=== PATIENT | male | born 1950 | race Caucasian/White ===

== ENCOUNTER 2020-10-18 09:55 | Emergency (ER) | payer OTHER ==
[2020-10-18 10:05] VITALS: BP 181/87
--- NOTE | 2020-10-18 11:48 | ED Physician Documentation ---
History of Present Illness - Stated complaint Stated Complaint: MALE - Chief complaint Chief Complaint: Abd Pain - History obtained from History obtained from: Patient - Additonal information Additional information: 70-year-old man with past medical history of right inguinal hernia presents with right groin pain, progressively worsening over the course of the day today. Worse with cough and bearing down. No discoloration or warmth. Review of Systems Constitutional: denies: Fever GI: reports: Abdominal Pain. denies: Nausea : denies: Dysuria, Frequency PD PAST MEDICAL HISTORY - Past Medical History Cardiovascular: High cholesterol - Present Medications Home Medications: Ambulatory Orders Medication Instructions Recorded Confirmed Aspirin [Aspirin EC] 81 mg PO DAILY 10/18/20 10/18/20 - Allergies Allergies/Adverse Reactions: Allergies Allergy/AdvReac Type Severity Reaction Status Date / Time No Known Drug Allergies Allergy Verified 10/18/20 10:05 - Social History Does the pt smoke?: No Smoking Status: Never smoker Does the pt drink ETOH?: Yes ETOH Use: Wine Does the pt have substance abuse?: Yes Substance Use and Type: Marijuana PD ED PE NORMAL - Vitals Vital signs reviewed: Yes - General General: Alert and oriented X 3, No acute distress, Well developed/nourished - HEENT HEENT: Atraumatic, PERRL, EOMI - Neck Neck: Supple, no meningeal sign - Abdomen Abdomen: Non tender, Non distended - Male Male : Brush Hand present (tech Ady), Other (large Direct inguinal hernia on the right) - Derm Derm: Normal color, Warm and dry - Extremities Extremities: No deformity - Neuro Neuro: Alert and oriented X 3 - Psych Psych: Normal mood, Normal affect Results - Vitals Vitals: Vital Signs - 24 hr 10/18/20 10:01 Temperature 37.0 C Heart Rate 99 Respiratory 20 Rate Blood Pressure 181/87 H O2 Saturation 98 Oxygen O2 Source Room air PD MEDICAL DECISION MAKING - ED course ED course: 70-year-old man presented with inguinal hernia that I was unable to reduce. Dr. Webb, surgeon continuity reader reduced with success and he is ambulatory without difficulty. will f/u surg clinic to schedule outpatient surg. return precautios given. Departure - Departure Disposition: 01 Home, Self Care Clinical Impression: Inguinal hernia Condition: Good Instructions: ED Hernia Inguinal Follow-Up: Nam Webb MD [Provider Admit Priv/Credential] - Comments: You were seen in the ED for hernia. Dr. Webb reduced it and you can follow up in his clinic to have it repaired. return to the ED if you have new or worsening symptoms or other concerns. Discharge Date/Time: 10/18/20 12:05
--- NOTE | 2020-10-18 12:11 | CONSULTATION NOTE ---
Surgery Consult - Consult Date Consult Date: 10/18/20 Requesting Provider: Gal - Chief Complaint Chief Complaint: right groin bulge and pain - Home Meds/Allergies Home Medications: Patient History Medication Instructions Recorded Confirmed Aspirin [Aspirin EC] 81 mg PO DAILY 10/18/20 10/18/20 Allergies/Adverse Reactions: Allergies Allergy/AdvReac Type Severity Reaction Status Date / Time No Known Drug Allergies Allergy Verified 10/18/20 10:05 - Vital Signs Vital Signs: Last Vital Signs Temp 37.0 C 10/18/20 10:01 Pulse 99 10/18/20 10:01 Resp 20 10/18/20 10:01 BP 181/87 H 10/18/20 10:01 Pulse Ox 98 10/18/20 10:01 - Consultation Note Consultation Note: 70 yo male [place] patient who noted a right groin bulge in the past month. He went to the [facility] clinic to evaluate as he was concerned it might be a tumor. He was told by the [place] doctor that it was a hernia and he should seek care if it caused any discomfort. Last night he felt increased swelling and pain and the bulge did not go away. He rode the bus from [place] to here for ER evaluation. No vomiting, he has passed flatus. No previous inguinal hernia or abdominal surgery. PMH: On vitamins and aspirin. Uses a walker because of chronic back pain. ROS: no chest pain, no SOB, no abdominal pain other than right groin. SH: Does not have a care, takes the bus wherever he needs to go. EXAM: General: elderly male, no distress Abdomen: scaphoid, nontender, no masses Inguinal exam: large, right inguinal hernia, reduced easily with steady pressure. No recurrence of hernia with cough and ambulation. Testes and cords bilateral normal Assessment: Reducible, large right inguinal hernia Plan: Patient cautioned to avoid any heavy lifting or straining and to monitor the right groin for any recurrence of the hernia. He will return to the ER if incarceration recurs. He will make an appointment with [facility] within one week to have the hernia repair scheduled. He was asked if he wants to schedule the repair with the [place], but the patient prefers to come here for surgery.
== END 2020-10-18 12:05 | disposition home or self-care (01) ==
LOC: ED 09:55
DX: K40.90 Unilateral inguinal hernia, without obstruction or gangrene, not specified as recurrent (principal)
CPT/HCPCS: 99281; 99283

== ENCOUNTER 2020-11-10 05:38 | Emergency (ER) | payer OTHER ==
[2020-11-10] MEDS ORDERED: HYDROmorphone 1 MG/ML CARPUJECT IM STA (05:46)
--- NOTE | 2020-11-10 06:20 | ED Physician Documentation ---
History of Present Illness - Stated complaint Stated Complaint: ABD PX,SWELLING - Chief complaint Chief Complaint: Abd Pain - History obtained from History obtained from: Patient - Additonal information Additional information: 70-year-old man with history of inguinal hernia status post reduction in the emergency department 10/18 presents with inguinal swelling since that time, worse with heavy lifting, progressing to severe pain overnight and hardening of the lump. Patient has not had a BM in 3 days. denies fever, discoloration, difficulty urinating. Review of Systems GI: reports: Abdominal Pain, Abdominal Swelling : reports: Testicular mass PD PAST MEDICAL HISTORY - Past Medical History Past Medical History: Yes Cardiovascular: High cholesterol GI: Other Other Past Medical History: inguinal hernia - Past Surgical History Past Surgical History: Yes Ortho: Hip replacement - Present Medications Home Medications: Ambulatory Orders Medication Instructions Recorded Confirmed Aspirin [Aspirin EC] 81 mg PO DAILY 10/18/20 11/10/20 Atorvastatin [Lipitor] 10 mg PO DAILY 11/10/20 11/10/20 HYDROcod/ACETAM 5/325 [Riley 5/325] 1 - 2 tablet PO Q6H PRN #14 tablet 11/10/20 Multivitamin 1 tab PO DAILY 11/10/20 11/10/20 - Allergies Allergies/Adverse Reactions: Allergies Allergy/AdvReac Type Severity Reaction Status Date / Time No Known Drug Allergies Allergy Verified 11/10/20 05:43 - Social History Does the pt smoke?: No Smoking Status: Never smoker Does the pt drink ETOH?: Yes Does the pt have substance abuse?: No - Immunizations Immunizations are current?: Yes PD ED PE NORMAL - Vitals Vital signs reviewed: Yes - General General: Alert and oriented X 3, No acute distress, Well developed/nourished - HEENT HEENT: Atraumatic, PERRL, EOMI - Abdomen Abdomen: Other (RLQ of abdomen with palpable hardened hernia that is not easily reducible. ) - Male Male : Other (R testicle swelling, hardened. no discoloration) - Neuro Neuro: Alert and oriented X 3, No motor deficit, No sensory deficit Results - Vitals Vitals: Oxygen O2 Source Room air PD MEDICAL DECISION MAKING - ED course ED course: Attempted reduction of right inguinal hernia in the emergency department. Unable to do so therefore I called Dr. Atkins, surgeon diamond finishing supervisor. patient endorsed to incoming daytime ED MD for further management and care. Departure - Departure Disposition: 01 Home, Self Care Clinical Impression: Incarcerated right inguinal hernia Condition: Stable Instructions: ED Hernia Inguinal Follow-Up: Arsalan Perez MD [Provider Admit Priv/Credential] - Mj Anthony MD [Provider Admit Priv/Credential] - Prescriptions: HYDROcod/ACETAM 5/325 [Riley 5/325] 1 - 2 tablet PO Q6H PRN #14 tablet PRN Reason: Pain Comments: Your hernia has been reduced today by the surgeon diamond finishing supervisor. You were given procedural sedation, and as such, should not drive or operate heavy equipment, nor should you make any important decisions or sign any important documents for the next 24 hours. The surgeon has recommended a "truss hernia belt" to help support the hernia area and prevent it from popping out and getting stuck again. You can google "truss hernia belt" for options. You can also search on a [employer] to find this kind of belt. There are many other websites that carry it also. The surgeon has recommended that you wear this to prevent further trouble such as you had today. He is also recommended that you follow-up with general surgeon to discuss having your hernia repaired. You may take the pain medication as needed, though you should be sure to eat a high-fiber diet to help avoid lilian re constipation. Discharge Date/Time: 11/10/20 09:48
[2020-11-10] MEDS ORDERED: MORPHINE 10 MG/ML VIAL IVP STA (07:30)
[2020-11-10] MEDS ORDERED: MIDAZOLAM 2 MG/2 ML VIAL IVP STA (07:31)
[2020-11-10] MEDS ORDERED: PROPOFOL 200 MG/20 ML VIAL IVP STA (08:10)
--- NOTE | 2020-11-10 08:30 | CONSULTATION NOTE ---
Surgery Consult - Home Meds/Allergies Home Medications: Patient History Medication Instructions Recorded Confirmed Aspirin [Aspirin EC] 81 mg PO DAILY 10/18/20 11/10/20 Atorvastatin [Lipitor] 10 mg PO DAILY 11/10/20 11/10/20 Multivitamin 1 tab PO DAILY 11/10/20 11/10/20 Allergies/Adverse Reactions: Allergies Allergy/AdvReac Type Severity Reaction Status Date / Time No Known Drug Allergies Allergy Verified 11/10/20 05:43 - Vital Signs Vital Signs: Last Vital Signs Temp 36.6 C 11/10/20 05:46 Pulse 71 11/10/20 07:48 Resp 18 11/10/20 07:48 BP 171/95 H 11/10/20 07:48 Pulse Ox 97 11/10/20 07:48 - Consultation Note Consultation Note: Pt seen and examined in ER and d/w ER doc for need for consious sedation. Pt has had a known right inguinal hernia that has increased in size especially over the last 3 days. He denies any constitutional symptoms specifically no anorexia, emesis, fever or obstipation. He has been seen and evaluated for this at the [facility]. I was called by the ER after failure to reduce bedside. Pt is non bothered by this but thought he should come in for eval. ROS - as per HPI. Reviewed and otherwise non contributory PMH/PSH reviewed per chart PE: AVSS Gen: aox3, pleasant, WNWD Rssp: non labored, symmetric CV: RRR Abd: benign, large irreducible RIH involving R thierno scrotum Ext: WWP A/P 1. Incarecerated RIH 2. Consious sedation by ER and completely reduced by me. May benefit from truss prior to repair 3. No concerns for ischemia due to completely painless prior and would advance diet and discharge with follow up with General Surgery for elective repair. 4. Pt agrees and understands and all questions answered.
--- NOTE | 2020-11-10 09:12 | ED Physician Documentation ---
ED Addendum - Addendum Addendum: 11/10/20 09:08 I was asked by Dr. Atkins, the surgeon transportation planning engineer, who is consulting on this patient, to administer procedural sedation so that he could attempt a reduction of the patient's incarcerated right inguinal hernia in the emergency department. I went through the informed consent with the patient, who agreed to the sedation. The patient was given 10 mg of morphine prior to the sedation, then 5 mg of Versed IV. Respiratory therapist was present. Dr. Atkins did begin his attempt to reduce the hernia, but despite the medications above, the patient was still becoming tense and grimacing. Dr. Atkins did request deeper sedation for the patient in the form of propofol, so I did give 50 mg of propofol IV. This did render the patient completely unconscious, and he was able to relax enough that the reduction could be completed. The patient recovered uneventfully with the exception of a period of time on supplemental oxygen per nasal cannula. On reevaluation, he was found to be awake and smiling and conversant. His friend was here to give him a ride home. The patient will be given analgesia for at home as well as a supportive device to help prevent further herniation/incarceration. Dr. Atkins has discussed with the patient his need for surgical follow-up to discuss repair of the hernia. Final impression: Incarcerated right inguinal hernia, reduced; status post procedural sedation Disposition: Home in improved condition.
[2020-11-10 09:18] VITALS: BP 119/94
== END 2020-11-10 09:48 | disposition home or self-care (01) ==
LOC: ED 05:38
DX: K40.00 Bilateral inguinal hernia, with obstruction, without gangrene, not specified as recurrent (principal)
CPT/HCPCS: 96372; 96374; 96375; 99284; 99285; J1170; 94770

== ENCOUNTER 2021-01-03 09:10 | Day surgery (SDC) | payer OTHER ==
[~2021-01-03 09:10] MED LIST: CEFAZOLIN SODIUM IN 0.9 % NACL 2 GM/100 ML BAG IV ONE
[2021-01-03] MEDS ORDERED: LACTATED RINGERS 1,000 ML IV ONE ×2 (09:18→13:12)
--- NOTE | 2021-01-03 09:42 | XRAY Report ---
PROCEDURE: Chest 1 View X-Ray INDICATIONS: Presurgical TECHNIQUE: One view of the chest was acquired. COMPARISON: None FINDINGS: Surgical changes and devices: None. Lungs and pleura: No pleural effusions or pneumothorax. Lungs are clear. Mediastinum: Mediastinal contours appear normal. Heart size is normal. Bones and chest wall: No suspicious bony lesions. Overlying soft tissues appear unremarkable. IMPRESSION: No acute cardiopulmonary disease process. Reviewed by: Desiree Haile MD, PhD on 01/03/2021 9:41 AM PDT Approved by: Desiree Haile MD, PhD on 01/03/2021 9:41 AM PDT Station ID: [id number]
--- NOTE | 2021-01-03 10:10 | ANESTHESIA ---
Pre-Anesthesia VS, & Labs - Diagnosis R inguinal hernia - Procedure R open inguinal hernia repair Vital Signs: Temp Pulse Resp BP Pulse Ox 36.3 C L 83 16 150/86 H 96 01/03/21 09:18 01/03/21 09:18 01/03/21 09:18 01/03/21 09:43 01/03/21 09:18 Height: 5 ft 9 in Weight (kg): 77.6 kg Body Mass Index: 25.2 BMI Classification: Overweight - NPO Last Fluid Intake: sips coffee w/am meds - Lab Results Lab results reviewed: Yes Home Medications and Allergies Aspirin [Aspirin EC] 81 mg PO DAILY 10/18/20 Atorvastatin [Lipitor] 10 mg PO DAILY 11/10/20 Multivitamin 1 tab PO DAILY 11/10/20 Allergies/Adverse Reactions: Allergies Allergy/AdvReac Type Severity Reaction Status Date / Time No Known Drug Allergies Allergy Verified 01/03/21 09:41 Anes History & Medical History - Anesthetic History Anesthesia Complications: reports: No previous complications Family history of Anesthesia Complications: Denies Family history of Malignant Hyperthermia: Denies - Medical History Cardiovascular: reports: Hypertension, High cholesterol, Coronary artery disease Pulmonary: reports: None Gastrointestinal: reports: None Urinary: reports: None Musculoskeletal: reports: Osteoarthritis, Chronic back pain Endocrine/Autoimmune: reports: None Skin: reports: None Smoking Status: Never smoker Psychosocial: reports: Alcohol, Cannabis (weekends) - Surgical History Orthopedic: reports: Hip replacement Exam General: Alert, Oriented x3, Cooperative Dental: Dentures full Upper (left in place) Mouth Opening: Greater than 4 Fingerbreadths Neck Mobility: Normal Mallampati classification: I Thyromental Distance: 4-6 cm Respiratory: Lungs clear, Normal breath sounds, No respiratory distress Cardiovascular: Regular rate Neurological: Normal speech Mental/Cognitive Status: Alert/Oriented X3, Normal for patient Cognitive Status: Within normal limits Plan Anesthesia Type: General Consent for Procedure(s) Verified and Reviewed: Yes Code Status: Attempt Resuscitation ASA classification: 2-Mild systemic disease Is this case an emergency?: No
[2021-01-03] MEDS ORDERED: ATROPINE ABBOJECT 1 MG/10 ML SYRINGE IVP PRN (10:11)
[2021-01-03] MEDS ORDERED: ePHEDrine 50 MG/ML VIAL IVP PRN (10:11)
[2021-01-03] MEDS ORDERED: ONDANSETRON 4 MG/2 ML VIAL IVP PRN ×2 (10:11→13:08)
[2021-01-03] MEDS ORDERED: NALOXONE 0.4 MG/ML VIAL IVP PRN (10:11)
[2021-01-03] MEDS ORDERED: METOCLOPRAMIDE 10 MG/2 ML VIAL IVP PRN (10:11)
[2021-01-03] MEDS ORDERED: fentaNYL 100 MCG/2 ML VIAL IVP PRN (10:11)
[2021-01-03] MEDS ORDERED: HYDROmorphone 0.5 MG/0.5 ML SYRINGE IVP PRN (10:11)
[2021-01-03] MEDS ORDERED: MORPHINE 2 MG/ML CARPUJECT IVP PRN (10:11)
[2021-01-03] MEDS ORDERED: LACTATED RINGERS 1,000 ML IV SCH (11:00)
[2021-01-03] MEDS ORDERED: LIDOCAINE 2%-EPI 1:100000 20 ML MDV ONE (11:37)
[2021-01-03] MEDS ORDERED: ceFAZolin 1 GM VIAL ONE (11:37)
[2021-01-03] MEDS ORDERED: BUPIVACAINE 0.5% PF 10 ML VIAL ONE (11:38)
[2021-01-03] MEDS ORDERED: SODIUM CHLORIDE 0.9% 10 ML VIAL IVP ONE (11:38)
[2021-01-03] MEDS ORDERED: LIDOCAINE-MPF 2% 5 ML VIAL ONE (11:45)
[2021-01-03] MEDS ORDERED: PROPOFOL 200 MG/20 ML VIAL IVP ONE (11:45)
[2021-01-03] MEDS ORDERED: fentaNYL 100 MCG/2 ML VIAL ONE (11:46)
[2021-01-03] MEDS ORDERED: ePHEDrine 50 MG/ML VIAL IVP ONE (12:28)
[2021-01-03] MEDS ORDERED: GLYCOPYRROLATE 1 MG/5 ML VIAL ONE (12:28)
[2021-01-03] MEDS ORDERED: BUPIVACAINE 0.5% PF 30 ML VIAL SUBQ ONE ×2 (12:31)
[2021-01-03] MEDS ORDERED: ceFAZolin 1 GM VIAL IR ONE (12:31)
[2021-01-03] MEDS ORDERED: LIDOCAINE 2%-EPI 1:100000 20 ML MDV SUBQ ONE ×2 (12:35)
--- NOTE | 2021-01-03 13:04 | OPERATIVE REPORT ---
Operative Report - General Procedure Date: 01/03/21 Planned Procedure: Right inguinal hernia repair Pre-Op Diagnosis: Incarcerated right inguinal hernia with intermittent obstruction Procedure Performed: Right inguinal hernia repair Post Op Diagnosis: Incarcerated right inguinal hernia containing a loop of small bowel - Procedure Note Primary Surgeon: Gabrielle Anesthesia Provider: GRETCHEN Ocampo Anesthesia Technique: General LMA Pathology: None Estimated Blood Loss (mL): 15 Indications: Incarcerated right inguinal hernia with intermittent obstruction requiring manual reduction Findings: A loop of small bowel in the right inguinal hernia extending into the scrotum Dense adhesions of the bowel to the surrounding cord Complications: None apparent - Other Other Information/Narrative: After obtaining informed consent, the patient is brought to the operating room and placed in the supine position on the operating table. Following successful induction of general endotracheal anesthesia, appropriate padding of all bony prominences, and placement of appropriate monitors, the abdomen was prepped and draped in the standard surgical fashion. A timeout was held per scope protocol. All elements of the surgical safety checklist were followed before, during, and after the procedure. We began the procedure by infiltrating a mixture of local anesthetics medial to the anterior superior iliac spine on the right. This was done to create an ileal inguinal nerve block. We then selected a site for an incision in the right lower quadrant just superior and lateral to the right pubic tubercle. This area was anesthetized with additional local anesthetic and an incision was created here.The incision was carried down through the skin and subcutaneous tissue to reveal the fascia of the external oblique aponeurosis. Retractor was placed and the aponeurosis was opened in direction of its fibers. The ilioinguinal nerve was immediately identified. We continued by identifying the spermatic cord and gently encircling it with a Harriman drain. The hernia sac was carefully dissected free from the cord structures and was noted to be in the inferior medial position. The sac was in the indirect position and contained a loop of viable small bowel. We carefully dissected the spermatic cord from the sac. The hernia sac was then placed back into the abdominal cavity. We elected to repair the hernia with a large Prolene hernia system mesh implant. This was dipped in Ancef containing solution and then deployed into the defect. The posterior leaflet was straightened and flattened in the preperitoneal space. The anterior leaflet was then nicked medially to provide a place for the spermatic cord and then closed with a Prolene suture. The more inferior aspect was then sewn to Luis's ligament medially. Laterally it was tucked under the external beak aponeurosis. The wound was checked for hemostasis and irrigated with warm saline solution. It was aspirated free of all fluid and particulate matter. The extra oblique aponeurosis was then closed with a running locking Vicryl suture Michael's fascia was closed with Vicryl suture and Monocryl stitches were placed in the skin. All sponge, needle, and instrument counts were correct at the conclusion of the case. The patient was allowed awaken from anesthesia without difficulty and taken to the postanesthesia care unit in good condition.
[2021-01-03] MEDS ORDERED: oxyCODONE 5 MG TABLET PO PRN (13:08)
[2021-01-03] MEDS ORDERED: IBUPROFEN 600 MG TABLET PO PRN (13:08)
[2021-01-03] MEDS ORDERED: ACETAMINOPHEN 325 MG TABLET PO PRN (13:08)
[2021-01-03 13:48] VITALS: BP 151/77
--- NOTE | 2021-01-03 17:55 | ANESTHESIA POST OP EVALUATION ---
Anesthesia Post Eval - Post Anesthesia Eval Vitals: Last Vital Signs Temp 36.2 C L 01/03/21 13:45 Pulse 85 01/03/21 13:45 Resp 16 01/03/21 13:45 BP 151/77 H 01/03/21 13:45 Pulse Ox 97 01/03/21 13:45 CV Function Including HR & BP: Stable Pain Control: Satisfactory Nausea & Vomiting: Negative Mental Status: Baseline Respiratory Status: Airway Patent Hydration Status: Satisfactory Anesthesia Complications: None
== END 2021-01-03 09:11 | disposition home or self-care (01) ==
LOC: SDS 09:10
PROVIDERS: ATTEND Surgery
DX: K40.30 Unilateral inguinal hernia, with obstruction, without gangrene, not specified as recurrent (principal); I10 Essential (primary) hypertension; I25.10 Atherosclerotic heart disease of native coronary artery without angina pectoris
CPT/HCPCS: 49507; 71045; C1781; J0690; J7120

== ENCOUNTER 2021-06-16 11:45 | Emergency (ER) | payer OTHER ==
[2021-06-16 11:55] VITALS: BP 188/100
--- NOTE | 2021-06-16 12:16 | XRAY Report ---
PROCEDURE: Chest 1 View X-Ray INDICATIONS: Chest pain TECHNIQUE: One view of the chest was acquired. COMPARISON: January 03, 2021 FINDINGS: SUPPORT DEVICES: None. LUNGS/PLEURA: No focal consolidation, pleural effusion or space-occupying pneumothorax. MEDIASTINUM: The cardiomediastinal silhouette is within normal limits. BONES/SOFT TISSUES: No acute abnormality. IMPRESSION: 1.No acute cardiopulmonary abnormality. Reviewed by: Miguel Quintero MD on 06/16/2021 12:15 PM PDT Approved by: Miguel Quintero MD on 06/16/2021 12:15 PM PDT Station ID: [id number]
[2021-06-16 12:20] LABS: BASOPHILS % (AUTO) 0.3 %; EOSINOPHILS # (AUTO) 0.1 10^3/uL (0.0-0.7); EOSINOPHILS % (AUTO) 0.8 %; HCT - HEMATOCRIT 43.7 % (42.0-52.0); HGB - HEMOGLOBIN 15.3 g/dL (14.0-18.0); LYMPHOCYTES # (AUTO) 1.9 10^3/uL (1.5-3.5); LYMPHOCYTES % (AUTO) 20.8 %; MEAN CORPUSCULAR HEMOGLOBIN 33.5 pg (27.0-31.0); MEAN CORPUSCULAR VOLUME 95.6 fL (80.0-94.0); MEAN PLATELET VOLUME 9.4 fL (7.4-11.4); MONOCYTES # (AUTO) 0.6 10^3/uL (0.0-1.0); MONOCYTES % (AUTO) 6.8 %; NEUTROPHILS # (AUTO) 6.4 10^3/uL (1.5-6.6); NEUTROPHILS % (AUTO) 71.2 %; PLT - PLATELET COUNT 255 10^3/uL (130-450); RED BLOOD COUNT 4.57 10^6/uL (4.70-6.10); RED CELL DISTRIBUTION WIDTH 12.4 % (12.0-15.0); WHITE BLOOD COUNT 8.9 x10^3/uL (4.8-10.8)
[2021-06-16 12:41] LABS: ALBUMIN 4.5 g/dL (3.2-5.5); ALBUMIN/GLOBULIN RATIO 1.5 (1.0-2.2); BILIRUBIN,TOTAL 0.6 mg/dL (0.2-1.0); CALCIUM 9.8 mg/dL (8.5-10.3); POTASSIUM 4.2 mmol/L (3.5-5.0); TOTAL PROTEIN 7.6 g/dL (6.7-8.2)
== END 2021-06-16 14:45 | disposition left against medical advice (07) ==
LOC: ED 11:45
DX: Z53.21 Procedure and treatment not carried out due to patient leaving prior to being seen by health care provider (principal)
CPT/HCPCS: 36415; 80053; 83690; 84484; 85025; 93005

== ENCOUNTER 2021-06-24 08:53 | Emergency (ER) | payer OTHER ==
--- NOTE | 2021-06-24 10:01 | ED Physician Documentation ---
PD HPI HEADACHE - Stated complaint Stated Complaint: R SIDE PX,SHOULDER,HEAD - Chief complaint Chief Complaint: Neuro - History obtained from History obtained from: Patient - History of Present Illness Timing - onset: How many days ago (3) Timing - onset during: Rest Timing - duration: Days (3) Timing - details: Gradual onset, Waxing and waning Worst headache ever?: Worst headache ever? (yes) Location: Back (radiating to right frontal area), Right Quality: Aching Associated symptoms: No: Fever, Stiff neck, Nausea, Eye pain, Vision changes Worsened by: No: Light, Noise Contributing factors: No: Recent illness, Trauma Similar symptoms before: Has not had sx before Recently seen: Not recently seen Review of Systems Constitutional: denies: Fever, Chills Eyes: denies: Loss of vision, Decreased vision, Photophobia Nose: denies: Rhinorrhea / runny nose, Congestion Throat: denies: Sore throat Cardiac: denies: Chest pain / pressure Respiratory: denies: Cough GI: denies: Abdominal Pain, Nausea, Vomiting Skin: denies: Rash, Lesions Neurologic: denies: Focal weakness, Numbness PD PAST MEDICAL HISTORY - Past Medical History Cardiovascular: Hypertension, High cholesterol, Coronary artery disease Respiratory: None Endocrine/Autoimmune: None GI: None : None Psych: Claustrophobia Musculoskeletal: Osteoarthritis, Chronic back pain Derm: None - Past Surgical History Past Surgical History: Yes Ortho: Hip replacement - Present Medications Home Medications: Ambulatory Orders Medication Instructions Recorded Confirmed Aspirin [Aspirin EC] 81 mg PO DAILY 10/18/20 01/03/21 Atorvastatin [Lipitor] 10 mg PO DAILY 11/10/20 01/03/21 Multivitamin 1 tab PO DAILY 11/10/20 01/03/21 Ondansetron Odt [Zofran Odt] 4 mg TL Q6H PRN #10 tablet 01/03/21 oxyCODONE [Roxicodone] 5 mg PO Q4-6H PRN #10 tablet 01/03/21 Losartan Potassium 25 mg PO DAILY #30 tablet 06/24/21 Valacyclovir HCl [Valtrex] 1,000 mg PO TID 15 Days #5 tablet 06/24/21 dexAMETHasone [Decadron] 4 mg PO DAILY #5 tablet 06/24/21 - Allergies Allergies/Adverse Reactions: Allergies Allergy/AdvReac Type Severity Reaction Status Date / Time No Known Drug Allergies Allergy Verified 06/24/21 08:57 - Social History Does the pt smoke?: No Smoking Status: Never smoker Does the pt drink ETOH?: Yes Does the pt have substance abuse?: No - Immunizations Immunizations are current?: Yes PD ED PE NORMAL - Vitals Vital signs reviewed: Yes - General General: Alert and oriented X 3, Well developed/nourished, Other (appears uncomfortable due to posterior headache) - Neck Neck: Supple, no meningeal sign, No bony TTP, No adenopathy, Other (tender in occipital ridge area on right and tender in back of head on right. No rash nor redness. ) - Cardiac Cardiac: RRR, No murmur - Respiratory Respiratory: Clear bilaterally - Derm Derm: Normal color, Warm and dry - Neuro Neuro: Alert and oriented X 3, portfolio analyst 2-12 intact, No motor deficit, No sensory deficit, Normal speech, Other Eye Opening: Spontaneous Motor: Obeys Commands Verbal: Oriented GCS Score: 15 Results - Vitals Vitals: Oxygen O2 Source Room air - Labs Labs: Laboratory Tests 06/24/21 06/24/21 06/24/21 10:59 10:59 10:59 WBC 7.3 RBC 4.15 L Hgb 14.1 Hct 40.2 L MCV 96.9 H MCH 34.0 H MCHC 35.1 RDW 12.6 Plt Count 227 MPV 9.4 Neut # (Auto) 5.2 Lymph # (Auto) 1.6 [place] # (Auto) 0.5 Eos # (Auto) 0.0 Baso # (Auto) 0.0 Absolute Nucleated RBC 0.00 Nucleated RBC % 0.0 ESR 15 Sodium 138 Potassium 3.8 Chloride 106 Carbon Dioxide 22 Anion Gap 10.0 BUN 12 Creatinine 1.0 Estimated GFR (MDRD) 73 L Glucose 92 Calcium 8.9 Total Bilirubin 0.6 AST 23 ALT 18 Alkaline Phosphatase 59 Total Protein 6.9 Albumin 4.1 Globulin 2.8 Albumin/Globulin Ratio 1.5 Lipase 34 - Rads (name of study) head/neck angnio Radiology: Prelim report reviewed (no acute process vertebral. 80%-90% carotid narrowings. ), See rad report PD MEDICAL DECISION MAKING - ED course Complexity details: reviewed results (carotid narrowings 80-90%. Need follow up but not critical narrowing and his symptoms would not correlate. No dissection etc posteriorly is the merlos right now. I talked with him about needing prompt follow up and referral for carotids though. ), considered differential (pain right posterior neck up to frontal area, with some skin sensitive, but no rash. Angio okay without dissection/bleed/mass. Consider shingles vs occipital neuralgia. Did not have trigger point per se. ), d/w patient Departure - Departure Disposition: 01 Home, Self Care Clinical Impression: Occipital headache High blood pressure Qualifiers: Hypertension type: unspecified Qualified Code(s): I10 - Essential (primary) hypertension Condition: Stable Record reviewed to determine appropriate education?: Yes Instructions: ED Cephalgia Unspecified Follow-Up: DEANNE MORALES MD [Primary Care Provider] - Prescriptions: dexAMETHasone [Decadron] 4 mg PO DAILY #5 tablet Losartan Potassium 25 mg PO DAILY #30 tablet Valacyclovir HCl [Valtrex] 1,000 mg PO TID 15 Days #5 tablet Comments: Your blood pressure was a elevated here in the ER but I do not think is the cause of your headache. Since you have had borderline high blood pressure previously, it is reasonable to start a low-dose blood pressure medicine. I wrote a prescription for losartan 25 mg daily. See how this does for your blood pressure over the next week or 2. Regarding your headache, there is no signs of vascular abnormality such as bleeding, aneurysms, dissection nor any tumors or swelling. Your CT scan did show some narrowing of the carotid blood flow in the front of the neck to an 80 to 90% level. You should consult contact your primary care to see if they feel a referral to vascular surgery is indicated and to discuss whether this is significant enough to need intervention or if they just follow it every 6 months or so with ultrasound. I would consider your headache to be likely either muscular or possibly nerve irritation. We can use an anti-inflammatory daily for the next 5 days. To that add Tylenol every 4-6 hours if needed for pain. Consideration would be an nerve inflammation such as shingles. It is not convincing at this time but if you develop some rash or skin tenderness over the next couple of days then I would also add Nicolle acyclovir antiviral medicine. Recheck if not improved proved over the next several days or worsening general symptoms. I transmitted your prescriptions to [facility] in [place]. Discharge Date/Time: 06/24/21 13:15
[2021-06-24] MEDS ORDERED: KETOROLAC 15 MG/ML VIAL IVP STA (10:48)
[2021-06-24 11:04] LABS: BASOPHILS % (AUTO) 0.5 %; EOSINOPHILS % (AUTO) 0.5 %; HCT - HEMATOCRIT 40.2 % (42.0-52.0); HGB - HEMOGLOBIN 14.1 g/dL (14.0-18.0); LYMPHOCYTES # (AUTO) 1.6 10^3/uL (1.5-3.5); LYMPHOCYTES % (AUTO) 21.4 %; MEAN CORPUSCULAR HGB CONC 35.1 g/dL (32.0-36.0); MEAN CORPUSCULAR VOLUME 96.9 fL (80.0-94.0); MEAN PLATELET VOLUME 9.4 fL (7.4-11.4); MONOCYTES # (AUTO) 0.5 10^3/uL (0.0-1.0); MONOCYTES % (AUTO) 6.7 %; NEUTROPHILS # (AUTO) 5.2 10^3/uL (1.5-6.6); NEUTROPHILS % (AUTO) 70.8 %; PLT - PLATELET COUNT 227 10^3/uL (130-450); RED BLOOD COUNT 4.15 10^6/uL (4.70-6.10); RED CELL DISTRIBUTION WIDTH 12.6 % (12.0-15.0); WHITE BLOOD COUNT 7.3 x10^3/uL (4.8-10.8)
[2021-06-24] MEDS ORDERED: IOVERSOL 320 100 ML VIAL IVP ONE ×2 (11:05→11:57)
[2021-06-24 11:17] LABS: ALBUMIN 4.1 g/dL (3.2-5.5); ALBUMIN/GLOBULIN RATIO 1.5 (1.0-2.2); BILIRUBIN,TOTAL 0.6 mg/dL (0.2-1.0); CALCIUM 8.9 mg/dL (8.5-10.3); POTASSIUM 3.8 mmol/L (3.5-5.0); TOTAL PROTEIN 6.9 g/dL (6.7-8.2)
--- NOTE | 2021-06-24 11:54 | CT Report ---
PROCEDURE: ANGIO HEAD W/WO INDICATIONS: posterior/right head and neck pain acute CONTRAST: IV CONTRAST: Optiray 320 ml: 80 PO CONTRAST: *NO PO CONTRAST TECHNIQUE: Precontrast 4.5 mm thick angled axial sections acquired from the foramen magnum to the vertex. Afte r the administration of intravenous contrast, 1 mm thick sections acquired through the [place] of [place] is. Postcontrast 4.5 mm thick sections then re-acquired from the foramen magnum to the vertex. 3-di mensional ebtkllo-dmcrfvbuk-yapofdlkkm (MIP) and/or volume rendering reformats were acquired of the c entral intracranial vasculature. For radiation dose reduction, the following was used: automated ex posure control, adjustment of mA and/or kV according to patient size. COMPARISON: Correlation is made with the accompanying neck CT angiogram, 06/24/2021 FINDINGS: Image quality: There is streak artifact seen through the skull base. Anterior circulation: Intracranial internal carotid arteries are normal in size and flow. The flow within the paired anterior cerebral arteries is normal and symmetric. The flow within the middle cer ebral arteries is normal and symmetric. The anterior communicating artery is seen. No aneurysms are seen. Posterior circulation: Visualized portions of the vertebral arteries demonstrate normal caliber, and join to form a normal appearing basilar artery. Incidental note is made of a prominent right vinyl dipper ior communicating artery, with a diminutive right P1 segment. This is attributed to a type orig in of the right posterior cerebral artery, which is considered to be a developmental variant of typic ally no clinical consequence. Flow within the posterior cerebral arteries is normal and symmetric. No aneurysms are seen. CSF spaces: Ventricles are normal in size and shape. Basal cisterns are patent. No extra-axial flu id collections. Brain: No midline shift. No intracranial bleeds or masses. Diaz-white matter interface appears int act. Skull and face: Calvarium and facial bones appear intact, without suspicious lesions. Sinuses: Visualized sinuses and mastoids are clear. IMPRESSION: No intracranial hemorrhage is seen. No significant intracranial abnormality is seen. No significant intracranial arterial abnormalities are seen. Incidental note is made of: type origin of the right posterior cerebral artery Reviewed by: Jose J Nolasco MD on 06/24/2021 10:53 AM ANABEL Approved by: Jose J Nolasco MD on 06/24/2021 10:53 AM [place] Station ID: [id number]
--- NOTE | 2021-06-24 11:57 | CT Report ---
PROCEDURE: ANGIO NECK W INDICATIONS: posterior/right head and neck pain acute CONTRAST: IV CONTRAST: Optiray 320 ml: 80 PO CONTRAST: *NO PO CONTRAST TECHNIQUE: After the administration of intravenous contrast, 1.5 mm axial sections acquired from the aortic arch to the [place] of [place]. Coronal 3-D maximum intensity projection (MIP) and/or volume rendering ref ormats were then performed. For radiation dose reduction, the following was used: automated exposur e control, adjustment of mA and/or kV according to patient size. COMPARISON: Correlation is made with the accompanying head CT angiogram, 06/24/2021 FINDINGS: Image quality: Excellent. Carotid system: The great vessels demonstrate a conventional anatomy as they arise from the aortic a rch. The origins of the common carotid arteries appear patent. The common carotid arteries demonstr ate normal calibers and courses. The bifurcation regions demonstrate prominent irregularity with pro minent calcification. There is approximately 80% narrowing seen involving the right proximal internal carotid artery. There is approximately 90% narrowing involving the left proximal internal carotid ar estela. The more distal internal carotid arteries demonstrate normal course and caliber. Posterior circulation: The origins of the vertebral arteries appear patent. The more superior porti ons of the vertebral arteries demonstrate normal course and caliber. They join to form a normal appe aring basilar artery. Soft tissues: Visualized neck soft tissues demonstrate no suspicious abnormalities. The thyroid is normal in size and there are no incidental findings. Bones: No suspicious bony lesions. Visualized cervical spine appears normally aligned. At least m oderate lower cervical spine degenerative changes can be seen, which are worst at C6-C7. IMPRESSION: Focal prominent narrowing can be seen involving both proximal internal carotid arteries, with approxi mately 80% narrowing on the right and approximately 90% narrowing of the left. Vascular surgery consultation is recommended. The estimate of stenosis included in the report of the imaging study was calculated using the NASCET method Reviewed by: Jose J Nolasco MD on 06/24/2021 10:55 AM ANABEL Approved by: Jose J Nolasco MD on 06/24/2021 10:55 AM ANABEL Station ID: [id number]
[2021-06-24 13:04] VITALS: BP 171/102
== END 2021-06-24 13:15 | disposition home or self-care (01) ==
LOC: ED 08:53
DX: R51.9 Headache, unspecified (principal); I10 Essential (primary) hypertension
CPT/HCPCS: 36415; 70496; 70498; 80053; 83690; 85025; 85651; 96374; 99284; Q9967

== ENCOUNTER 2022-05-26 09:36 | Emergency (ER) | payer OTHER ==
[2022-05-26 11:26] VITALS: BP 145/82
--- NOTE | 2022-05-26 12:32 | ED Physician Documentation ---
History of Present Illness - Stated complaint Stated Complaint: HEADACHE - Chief complaint Chief Complaint: Neuro - History obtained from History obtained from: Patient - History of Present Illness Timing: How many weeks ago (6-8) Pain level max: 8 Pain level now: 0 - Additonal information Additional information: 72-year-old male complains of intermittent right-sided neck pain over the past 6 to 8 weeks. He states that when he turns his neck occasionally he will feel a shooting pain up towards the base of his skull. Described as burning. Last for few minutes and then resolves. Currently asymptomatic. No fevers. No chills. No focal neurological deficits. No numbness or tingling. No weakness. No vision changes. No headache. Review of Systems Constitutional: denies: Fever, Chills GI: denies: Vomiting, Diarrhea Skin: denies: Rash Musculoskeletal: denies: Neck pain, Back pain Neurologic: denies: Headache PD PAST MEDICAL HISTORY - Past Medical History Past Medical History: Yes Cardiovascular: Hypertension, High cholesterol, Coronary artery disease Respiratory: None Endocrine/Autoimmune: None GI: None : None Psych: Claustrophobia Musculoskeletal: Osteoarthritis, Chronic back pain Derm: None - Past Surgical History Past Surgical History: Yes Ortho: Hip replacement - Present Medications Home Medications: Ambulatory Orders Medication Instructions Recorded Confirmed Aspirin [Aspirin EC] 81 mg PO DAILY 10/18/20 01/03/21 Atorvastatin [Lipitor] 10 mg PO DAILY 11/10/20 01/03/21 Multivitamin 1 tab PO DAILY 11/10/20 01/03/21 Ondansetron Odt [Zofran Odt] 4 mg TL Q6H PRN #10 tablet 01/03/21 oxyCODONE [Roxicodone] 5 mg PO Q4-6H PRN #10 tablet 01/03/21 Losartan Potassium 25 mg PO DAILY #30 tablet 06/24/21 Valacyclovir HCl [Valtrex] 1,000 mg PO TID 15 Days #5 tablet 06/24/21 dexAMETHasone [Decadron] 4 mg PO DAILY #5 tablet 06/24/21 Aspirin EC [Ecotrin] 81 mg PO DAILY #30 tablet 05/26/22 Diclofenac Sodium 1% Gel [Voltaren 2 gm TOP QID PRN #1 each 05/26/22 Gel] - Allergies Allergies/Adverse Reactions: Allergies Allergy/AdvReac Type Severity Reaction Status Date / Time No Known Drug Allergies Allergy Verified 05/26/22 09:54 - Social History Does the pt smoke?: No Smoking Status: Never smoker Does the pt drink ETOH?: Yes Does the pt have substance abuse?: No - Immunizations Immunizations are current?: Yes PD ED PE NORMAL - Vitals Vital signs reviewed: Yes - General General: Alert and oriented X 3, No acute distress - HEENT HEENT: PERRL, Moist mucous membranes - Neck Neck: Supple, no meningeal sign, No bony TTP, No JVD, No bruit - Cardiac Cardiac: RRR, Strong equal pulses - Respiratory Respiratory: No respiratory distress, Clear bilaterally - Abdomen Abdomen: Soft, Non tender, Non distended - Back Back: No spinal TTP - Derm Derm: Warm and dry - Extremities Extremities: No edema, No calf tenderness / cord - Neuro Neuro: Alert and oriented X 3, drill press hand 2-12 intact, No motor deficit, No sensory deficit - Psych Psych: Normal mood, Normal affect Results - Vitals Vitals: Vital Signs - 24 hr 05/26/22 05/26/22 09:51 11:00 Temperature 36.9 C Heart Rate 90 65 Respiratory 20 14 Rate Blood Pressure 201/100 H 145/82 H O2 Saturation 96 98 Oxygen O2 Source Room air - Labs Labs: Laboratory Tests 05/26/22 10:54 POC Whole Bld Glucose 105 H PD Medical Decision Making - ED course Complexity details: reviewed results, re-evaluated patient, considered differential, d/w patient ED course: Patient is a 72-year-old male with what sounds like cervical radiculopathy. Fully asymptomatic in the emergency department. No focal neurological deficits. No indication for repeat emergent imaging today. We will place on anti- inflammatories for home. I did review his CT angiogram findings with him form 2021. He has a primary care provider but has not followed up with them in several years. He states he does not know if he has ever had his cholesterol checked. He has not had any focal neurological deficits. I reviewed the urgent nature of his carotid artery stenosis from last year and the need for follow-up with vascular surgery to prevent strokes, , seizures, paralysis. Patient states he will call his doctor today. We will start him on a baby aspirin daily. He will return if he worsens. Patient counseled regarding signs and symptoms for which I believe and urgent re-evaluation would be necessary. Patient with good understanding of and agreement to plan and is comfortable going home at this time This document was made in part using voice recognition software. While efforts are made to proofread this document, sound alike and grammatical errors may occur. Departure - Departure Disposition: 01 Home, Self Care Clinical Impression: Cervical arthritis Condition: Good Instructions: ED Degenerative Joint Disease Follow-Up: DEANNE MORALES MD [Primary Care Provider] - Within 1 week Prescriptions: Aspirin EC [Ecotrin] 81 mg PO DAILY #30 tablet Diclofenac Sodium 1% Gel [Voltaren Gel] 2 gm TOP QID PRN #1 each PRN Reason: neck pain Comments: You do have significant arthritis in your neck from your CT scan last year. It sounds as if you are having irritation to your spinal nerves from the arthritis. Please follow-up with your doctor for further care. They may want to perform an MRI of your neck. You also need to follow-up with the carotid stenosis as previously diagnosed last year. If these continue to progress, they could cause debilitating strokes, paralysis and . Please call your doctor today for an appointment. Please take this paper with you to your appointment. We are also starting you on an aspirin daily. Your prescriptions were sent to [facility] in [place]. I have copied your CT scan results from last year below. CT ANGIOGRAM NECK COMPARISON: Correlation is made with the accompanying head CT angiogram, 06/24/2021 FINDINGS: Image quality: Excellent. Carotid system: The great vessels demonstrate a conventional anatomy as they arise from the aortic arch. The origins of the common carotid arteries appear patent. The common carotid arteries demonstrate normal calibers and courses. The bifurcation regions demonstrate prominent irregularity with prominent calcification. There is approximately 80% narrowing seen involving the right proximal internal carotid artery. There is approximately 90% narrowing involving the left proximal internal carotid artery. The more distal internal carotid arteries demonstrate normal course and caliber. Posterior circulation: The origins of the vertebral arteries appear patent. The more superior portions of the vertebral arteries demonstrate normal course and caliber. They join to form a normal appearing basilar artery. Soft tissues: Visualized neck soft tissues demonstrate no suspicious abnormalities. The thyroid is normal in size and there are no incidental findings. Bones: No suspicious bony lesions. Visualized cervical spine appears normally aligned. At least moderate lower cervical spine degenerative changes can be seen, which are worst at C6-C7. IMPRESSION: Focal prominent narrowing can be seen involving both proximal internal carotid arteries, with approximately 80% narrowing on the right and approximately 90% narrowing of the left. Vascular surgery consultation is recommended. The estimate of stenosis included in the report of the imaging study was calculated using the NASCET method CT ANGIOGRAM HEAD FINDINGS: Image quality: There is streak artifact seen through the skull base. Anterior circulation: Intracranial internal carotid arteries are normal in size and flow. The flow within the paired anterior cerebral arteries is normal and symmetric. The flow within the middle cerebral arteries is normal and symmetric. The anterior communicating artery is seen. No aneurysms are seen. Posterior circulation: Visualized portions of the vertebral arteries demonstrate normal caliber, and join to form a normal appearing basilar artery. Incidental note is made of a prominent right posterior communicating artery, with a diminutive right P1 segment. This is attributed to a type origin of the right posterior cerebral artery, which is considered to be a developmental variant of typically no clinical consequence. Flow within the posterior cerebral arteries is normal and symmetric. No aneurysms are seen. CSF spaces: Ventricles are normal in size and shape. Basal cisterns are patent. No extra-axial fluid collections. Brain: No midline shift. No intracranial bleeds or masses. Diaz-white matter interface appears intact. Skull and face: Calvarium and facial bones appear intact, without suspicious lesions. Sinuses: Visualized sinuses and mastoids are clear. IMPRESSION: No intracranial hemorrhage is seen. No significant intracranial abnormality is seen. No significant intracranial arterial abnormalities are seen. Incidental note is made of: type origin of the right posterior cerebral artery Discharge Date/Time: 05/26/22 12:45
== END 2022-05-26 12:45 | disposition home or self-care (01) ==
LOC: ED 09:36
DX: M47.812 Spondylosis without myelopathy or radiculopathy, cervical region (principal); I10 Essential (primary) hypertension; I25.10 Atherosclerotic heart disease of native coronary artery without angina pectoris; Z79.899 Other long term (current) drug therapy; Z79.82 Long term (current) use of aspirin
CPT/HCPCS: 99282; 99284

== ENCOUNTER 2023-02-04 06:22 | Outpatient (CLI) | payer OTHER | END 2023-02-04 06:23 | disposition critical access hospital (66) | LOC: EMS 06:22 | DX: R07.89 Other chest pain (principal); I10 Essential (primary) hypertension | CPT/HCPCS: A0425; A0429 ==

== ENCOUNTER 2023-02-04 06:59 | Emergency (ER) | payer OTHER ==
--- NOTE | 2023-02-04 07:30 | ED Physician Documentation ---
PD HPI CHEST PAIN - Stated complaint Stated Complaint: CP - Chief complaint Chief Complaint: Cardiac - History obtained from History obtained from: Patient - Additional information Additional information: 72-year-old gentleman with no history of heart disease presents for chest pain. He has a history of hypertension, no other risk factors for coronary disease other than age. This morning he got up to go to the bathroom at 4 AM and had a very brief central chest pain episode lasting 3 to 4 seconds. It was not severe. Then it recurred later, just a bit later, while watching the news. Also similarly brief. Has been chest pain-free for a couple of hours now. No shortness of breath, fatigue, sweatiness, nausea, dizziness. No pedal edema or calf pain. PD PAST MEDICAL HISTORY - Past Medical History Cardiovascular: Hypertension, High cholesterol, Coronary artery disease Respiratory: None Endocrine/Autoimmune: None GI: None : None Psych: Claustrophobia Musculoskeletal: Osteoarthritis, Chronic back pain Derm: None - Past Surgical History Past Surgical History: Yes Ortho: Hip replacement - Present Medications Home Medications: Ambulatory Orders Medication Instructions Recorded Confirmed Aspirin [Aspirin EC] 81 mg PO DAILY 10/18/20 01/03/21 Atorvastatin [Lipitor] 10 mg PO DAILY 11/10/20 01/03/21 Multivitamin 1 tab PO DAILY 11/10/20 01/03/21 Ondansetron Odt [Zofran Odt] 4 mg TL Q6H PRN #10 tablet 01/03/21 oxyCODONE [Roxicodone] 5 mg PO Q4-6H PRN #10 tablet 01/03/21 Losartan Potassium 25 mg PO DAILY #30 tablet 06/24/21 Valacyclovir HCl [Valtrex] 1,000 mg PO TID 15 Days #5 tablet 06/24/21 dexAMETHasone [Decadron] 4 mg PO DAILY #5 tablet 06/24/21 Aspirin EC [Ecotrin] 81 mg PO DAILY #30 tablet 05/26/22 Diclofenac Sodium 1% Gel [Voltaren 2 gm TOP QID PRN #1 each 05/26/22 Gel] - Allergies Allergies/Adverse Reactions: Allergies Allergy/AdvReac Type Severity Reaction Status Date / Time No Known Drug Allergies Allergy Verified 05/26/22 09:54 - Social History Does the pt smoke?: No Smoking Status: Never smoker Does the pt drink ETOH?: Yes Does the pt have substance abuse?: No - Immunizations Immunizations are current?: Yes PD ED PE NORMAL - Vitals Vital signs reviewed: Yes - General General: Alert and oriented X 3, No acute distress - Neck Neck: Supple, no meningeal sign, No JVD, No bruit - Cardiac Cardiac: RRR, No murmur - Respiratory Respiratory: No respiratory distress, Clear bilaterally - Abdomen Abdomen: Normal bowel sounds, Soft, Non tender - Extremities Extremities: No edema, No calf tenderness / cord - Neuro Neuro: Alert and oriented X 3, No motor deficit, No sensory deficit, Normal speech Eye Opening: Spontaneous Motor: Obeys Commands Verbal: Oriented GCS Score: 15 Results - Vitals Vitals: Vital Signs - 24 hr 02/04/23 02/04/23 07:04 08:39 Temperature 37 C Heart Rate 93 75 Respiratory 17 15 Rate Blood Pressure 162/78 H 145/94 H O2 Saturation 100 98 Oxygen O2 Source Room air - EKG (time done) 0719 EKG releavant findings:: EKG personally interpreted by author of this note. Relevant findings are: Rate: Rate (enter#) (70) Rhythm: NSR [place]: Normal Intervals: Prolonged [place] QRS: Normal Ischemia: Normal ST segments. No: ST elevation c/w ischemia, ST depression, T wave inversion - Labs Labs: Laboratory Tests 02/04/23 02/04/23 07:22 07:22 WBC 6.7 RBC 4.43 L Hgb 14.5 Hct 41.6 L MCV 93.9 MCH 32.7 H MCHC 34.9 RDW 12.1 Plt Count 221 MPV 9.7 Neut # (Auto) 4.6 Lymph # (Auto) 1.5 [place] # (Auto) 0.4 Eos # (Auto) 0.1 Baso # (Auto) 0.0 Absolute Nucleated RBC 0.00 Nucleated RBC % 0.0 Sodium 137 Potassium 3.7 Chloride 106 Carbon Dioxide 23 Anion Gap 8.0 BUN 15 Creatinine 1.0 Estimated GFR (MDRD) 73 L Glucose 105 H Calcium 9.0 Total Bilirubin 0.6 AST 15 ALT 11 Alkaline Phosphatase 59 Troponin I High Sens 6.7 Total Protein 7.2 Albumin 4.5 Globulin 2.7 Albumin/Globulin Ratio 1.7 Lipase 12 - Rads (name of study) 1v cxr Relevant Findings:: Final report received, EMP independent interpretation of test PD Medical Decision Making - ED course ED course: 72-year-old gentleman presents with episodic chest pain. It is quite short in nature lasting only a few seconds at a time making it very atypical and he was chest pain free here in the department. Chest x-ray and EKG were normal. Labs otherwise unremarkable including CBC and CMP. Departure - Departure Disposition: 01 Home, Self Care Clinical Impression: Chest pain Qualifiers: Chest pain type: unspecified Qualified Code(s): R07.9 - Chest pain, unspecified Condition: Good Record reviewed to determine appropriate education?: Yes Instructions: ED Chest Pain NonCardiac Comments: There is no evidence of active coronary disease at this time but do return if chest pain recurs otherwise talk with your primary care physician about follow- up stress testing. Forms: PCP List Discharge Date/Time: 02/04/23 08:41
[2023-02-04 07:39] LABS: BASOPHILS % (AUTO) 0.6 %; EOSINOPHILS # (AUTO) 0.1 10^3/uL (0.0-0.7); HCT - HEMATOCRIT 41.6 % (42.0-52.0); HGB - HEMOGLOBIN 14.5 g/dL (14.0-18.0); LYMPHOCYTES # (AUTO) 1.5 10^3/uL (1.5-3.5); MEAN CORPUSCULAR HEMOGLOBIN 32.7 pg (27.0-31.0); MEAN CORPUSCULAR HGB CONC 34.9 g/dL (32.0-36.0); MEAN CORPUSCULAR VOLUME 93.9 fL (80.0-94.0); MEAN PLATELET VOLUME 9.7 fL (7.4-11.4); MONOCYTES # (AUTO) 0.4 10^3/uL (0.0-1.0); MONOCYTES % (AUTO) 5.5 %; NEUTROPHILS # (AUTO) 4.6 10^3/uL (1.5-6.6); NEUTROPHILS % (AUTO) 69.2 %; PLT - PLATELET COUNT 221 10^3/uL (130-450); RED BLOOD COUNT 4.43 10^6/uL (4.70-6.10); RED CELL DISTRIBUTION WIDTH 12.1 % (12.0-15.0); WHITE BLOOD COUNT 6.7 x10^3/uL (4.8-10.8)
[2023-02-04 07:41] LABS: ALBUMIN 4.5 g/dL (3.2-5.5); ALBUMIN/GLOBULIN RATIO 1.7 (1.0-2.2); BILIRUBIN,TOTAL 0.6 mg/dL (0.2-1.0); POTASSIUM 3.7 mmol/L (3.5-4.5); TOTAL PROTEIN 7.2 g/dL (6.4-8.9)
[2023-02-04 07:48] LABS: TROPONIN I HIGH SENSITIVITY 6.7 ng/L (2.3-19.7)
--- NOTE | 2023-02-04 08:46 | XRAY Report ---
PROCEDURE: Chest 1 View X-Ray INDICATIONS: Chest Pain TECHNIQUE: One view of the chest was acquired. COMPARISON: None. FINDINGS: Surgical changes and devices: None. Lungs and pleura: No pleural effusions or pneumothorax. Lungs are clear. The lowest portion of th e costophrenic angles laterally are not visualized. Mediastinum: Mediastinal contours appear normal. Heart size is normal. Bones and chest wall: No suspicious bony lesions. Overlying soft tissues appear unremarkable. IMPRESSION: No acute cardiopulmonary process. Reviewed by: Tyshawn Solorzano on 02/04/2023 8:44 AM PDT Approved by: Tyshawn Solorzano on 02/04/2023 8:44 AM PDT Station ID: [id number]
[2023-02-04 08:54] VITALS: BP 145/94; O2SAT 98
== END 2023-02-04 08:41 | disposition home or self-care (01) ==
LOC: EDUNIT# → SUPCPDRO 06:59 → ED 06:59
DX: R07.89 Other chest pain (principal); I10 Essential (primary) hypertension; E78.00 Pure hypercholesterolemia, unspecified; I25.10 Atherosclerotic heart disease of native coronary artery without angina pectoris; Z79.82 Long term (current) use of aspirin; Z79.899 Other long term (current) drug therapy
CPT/HCPCS: 36415; 80053; 83690; 84484; 85025; 93005; 99283; 99284

== ENCOUNTER 2023-11-09 13:53 | Outpatient (CLI) | payer OTHER | END 2023-11-09 23:59 | disposition critical access hospital (66) | LOC: EMS 13:53 | DX: R53.1 Weakness (principal); S40.022A Contusion of left upper arm, initial encounter; S40.021A Contusion of right upper arm, initial encounter; W18.30XA Fall on same level, unspecified, initial encounter; Y92.008 Other place in unspecified non-institutional (private) residence as the place of occurrence of the external cause; R32 Unspecified urinary incontinence; R15.9 Full incontinence of feces; R41.82 Altered mental status, unspecified | CPT/HCPCS: A0425; A0427 ==

== ENCOUNTER 2023-11-09 14:31 | Emergency (ER) | payer MEDICARE, OTHER ==
[2023-11-09 14:54] LABS: BASOPHILS % (AUTO) 0.2 %; HCT - HEMATOCRIT 42.8 % (42.0-52.0); HGB - HEMOGLOBIN 15.5 g/dL (14.0-18.0); LYMPHOCYTES # (AUTO) 0.7 10^3/uL (1.5-3.5); LYMPHOCYTES % (AUTO) 6.5 %; MEAN CORPUSCULAR HEMOGLOBIN 33.1 pg (27.0-31.0); MEAN CORPUSCULAR HGB CONC 36.2 g/dL (32.0-36.0); MEAN CORPUSCULAR VOLUME 91.5 fL (80.0-94.0); MEAN PLATELET VOLUME 9.4 fL (7.4-11.4); MONOCYTES # (AUTO) 0.9 10^3/uL (0.0-1.0); MONOCYTES % (AUTO) 7.8 %; NEUTROPHILS # (AUTO) 9.8 10^3/uL (1.5-6.6); NEUTROPHILS % (AUTO) 85.2 %; PLT - PLATELET COUNT 238 10^3/uL (130-450); RED BLOOD COUNT 4.68 10^6/uL (4.70-6.10); WHITE BLOOD COUNT 11.5 x10^3/uL (4.8-10.8)
--- NOTE | 2023-11-09 14:59 | ED Physician Documentation ---
History of Present Illness - Stated complaint Stated Complaint: WEAKNESS/FALL - Chief complaint Chief Complaint: Neuro - History obtained from History obtained from: Patient - Additonal information Additional information: 73-year-old male presented after being found down at home. He was last seen yesterday afternoon, this morning when a friend was coming by to take him grocery shopping they found him down on the ground and called EMS. Patient was awake and had no complaints but it was unknown how long he was down. Patient has had some increased confusion recently and Per his sister they were planning on getting a cognitive evaluation at their next PCP visit. The patient had told her that he thought he may have some dementia. He is not sure what happened yesterday or how he fell or how long he was down for. He has absolutely no complaints at this time however. He denies any headache, no chest pain or difficulty breathing, no abdominal pain nausea vomiting or diarrhea, no urinary symptoms. He normally is independent And lives alone but he does have a number of friends stopping into check on him. Review of Systems Unable to obtain: Confused, Other (Patient confused but very pleasant and states he has no concerns today.) PD PAST MEDICAL HISTORY - Past Medical History Past Medical History: Yes Cardiovascular: Hypertension, High cholesterol, Coronary artery disease Respiratory: None Endocrine/Autoimmune: None GI: None : None Psych: Claustrophobia Musculoskeletal: Osteoarthritis, Chronic back pain Derm: None - Past Surgical History Past Surgical History: Yes Ortho: Hip replacement - Present Medications Home Medications: Ambulatory Orders Medication Instructions Recorded Confirmed Aspirin [Aspirin EC] 81 mg PO DAILY 10/18/20 01/03/21 Atorvastatin [Lipitor] 10 mg PO DAILY 11/10/20 01/03/21 Multivitamin 1 tab PO DAILY 11/10/20 01/03/21 Ondansetron Odt [Zofran Odt] 4 mg TL Q6H PRN #10 tablet 01/03/21 oxyCODONE [Roxicodone] 5 mg PO Q4-6H PRN #10 tablet 01/03/21 Losartan Potassium 25 mg PO DAILY #30 tablet 06/24/21 Valacyclovir HCl [Valtrex] 1,000 mg PO TID 15 Days #5 tablet 06/24/21 dexAMETHasone [Decadron] 4 mg PO DAILY #5 tablet 06/24/21 Aspirin EC [Ecotrin] 81 mg PO DAILY #30 tablet 05/26/22 Diclofenac Sodium 1% Gel [Voltaren 2 gm TOP QID PRN #1 each 05/26/22 Gel] - Allergies Allergies/Adverse Reactions: Allergies Allergy/AdvReac Type Severity Reaction Status Date / Time No Known Drug Allergies Allergy Verified 05/26/22 09:54 - Social History Does the pt smoke?: No Smoking Status: Never smoker Does the pt drink ETOH?: Yes Does the pt have substance abuse?: No - Immunizations Immunizations are current?: Yes - POLST Patient has POLST: No PD ED PE NORMAL - Vitals Vital signs reviewed: Yes - General General: No acute distress, Other (Patient oriented to self and date of , he Is otherwise confused) - HEENT HEENT: Atraumatic, Moist mucous membranes - Neck Neck: Supple, no meningeal sign, No adenopathy - Cardiac Cardiac: RRR, No murmur, No gallop, No rub, Strong equal pulses - Respiratory Respiratory: No respiratory distress, Clear bilaterally - Abdomen Abdomen: Normal bowel sounds, Soft, Non tender, Non distended - Back Back: No CVA TTP, No spinal TTP - Derm Derm: Normal color, Warm and dry, Other (Large bruise contusion on the back of the left shoulder) - Extremities Extremities: No deformity, No tenderness to palpate, Normal ROM s pain, No edema, No calf tenderness / cord - Neuro Neuro: voip network engineer 2-12 intact, No motor deficit, No sensory deficit, Normal speech Eye Opening: Spontaneous Motor: Obeys Commands Verbal: Confused GCS Score: 14 - Free text exam Free text exam: Patient is having visual and auditory hallucinations, telling me to "shh, they are telling me something," and repeatedly referring to his friends in the room, or pointing to "my friend in the red sweatshirt" which was a red sign in the room. He is a very pleasant, and recounts his experiences in [place] and can have complete conversations but has a confusion and visual and auditory hallucinations. On ambulation to the bathroom, the RN notes that the patient is wobbly and weak without focal weakness. Results - Vitals Vitals: Vital Signs - 24 hr 11/09/23 11/09/23 11/09/23 14:36 15:02 17:04 Temperature 36.5 C Heart Rate 101 H 97 102 H Respiratory 17 14 22 Rate Blood Pressure 188/107 H 162/101 H O2 Saturation 100 99 95 11/09/23 19:00 Temperature Heart Rate 90 Respiratory 17 Rate Blood Pressure 179/85 H O2 Saturation 94 Oxygen O2 Source Room air - EKG (time done) No standard instances EKG releavant findings:: EKG personally interpreted by author of this note. Relevant findings are: Rate: Rate (enter#) (91) Rhythm: NSR Mckinney: RAD Intervals: Prolonged AK, 1st degree AVB QRS: Normal Ischemia: Non specific changes Computer interpretation: Agree with computer - Labs Labs: Laboratory Tests 11/09/23 11/09/23 11/09/23 14:50 14:50 14:50 WBC 11.5 H RBC 4.68 L Hgb 15.5 Hct 42.8 MCV 91.5 MCH 33.1 H MCHC 36.2 H RDW 12.0 Plt Count 238 MPV 9.4 Neut # (Auto) 9.8 H Lymph # (Auto) 0.7 L [place] # (Auto) 0.9 Eos # (Auto) 0.0 Baso # (Auto) 0.0 Absolute Nucleated RBC 0.00 Nucleated RBC % 0.0 Sodium 134 L Potassium 3.5 Chloride 102 Carbon Dioxide 21 Anion Gap 11.0 BUN 13 Creatinine 0.9 Estimated GFR (MDRD) 82 L Glucose 110 H Calcium 9.7 Total Bilirubin 1.1 H AST 36 ALT 14 Alkaline Phosphatase 62 Total Creatine Kinase 1736 H* Troponin I High Sens Total Protein 7.2 Albumin 4.6 Globulin 2.6 Albumin/Globulin Ratio 1.8 Lipase < 10 L Urine Color Urine Clarity Urine pH Ur Specific [place] Urine Protein Urine Glucose (UA) Urine Ketones Urine Occult Blood Urine Nitrite Urine Bilirubin Urine Urobilinogen Ur Leukocyte Esterase Urine RBC Urine WBC Ur Squamous Epith Cells Urine Bacteria Ur Microscopic Review Urine Culture Comments Urine Opiates Screen Ur Buprenorphine Scrn Ur Oxycodone Screen Urine Methadone Screen Ur Barbiturates Screen Ur Tricyclics Screen Ur Phencyclidine Scrn Ur Amphetamine Screen U Methamphetamines Scrn U Benzodiazepines Scrn Urine Cocaine Screen U Cannabinoids Screen Ur Drug Screen Comment Ethyl Alcohol 11/09/23 11/09/23 11/09/23 14:50 14:50 15:45 WBC RBC Hgb Hct MCV MCH MCHC RDW Plt Count MPV Neut # (Auto) Lymph # (Auto) [place] # (Auto) Eos # (Auto) Baso # (Auto) Absolute Nucleated RBC Nucleated RBC % Sodium Potassium Chloride Carbon Dioxide Anion Gap BUN Creatinine Estimated GFR (MDRD) Glucose Calcium Total Bilirubin AST ALT Alkaline Phosphatase Total Creatine Kinase Troponin I High Sens 38.6 H* Total Protein Albumin Globulin Albumin/Globulin Ratio Lipase Urine Color YELLOW Urine Clarity HAZY Urine pH 5.5 Ur Specific [place] 1.025 Urine Protein TRACE Urine Glucose (UA) NEGATIVE Urine Ketones TRACE Urine Occult Blood LARGE H Urine Nitrite NEGATIVE Urine Bilirubin NEGATIVE Urine Urobilinogen 0.2 (NORMAL) Ur Leukocyte Esterase NEGATIVE Urine RBC 11-25 H Urine WBC 4-5 Ur Squamous Epith Cells NONE SEEN Urine Bacteria None Seen Ur Microscopic Review INDICATED Urine Culture Comments NOT INDICATED Urine Opiates Screen Ur Buprenorphine Scrn Ur Oxycodone Screen Urine Methadone Screen Ur Barbiturates Screen Ur Tricyclics Screen Ur Phencyclidine Scrn Ur Amphetamine Screen U Methamphetamines Scrn U Benzodiazepines Scrn Urine Cocaine Screen U Cannabinoids Screen Ur Drug Screen Comment Ethyl Alcohol < 10.0 11/09/23 11/09/23 15:46 18:48 WBC RBC Hgb Hct MCV MCH MCHC RDW Plt Count MPV Neut # (Auto) Lymph # (Auto) [place] # (Auto) Eos # (Auto) Baso # (Auto) Absolute Nucleated RBC Nucleated RBC % Sodium Potassium Chloride Carbon Dioxide Anion Gap BUN Creatinine Estimated GFR (MDRD) Glucose Calcium Total Bilirubin AST ALT Alkaline Phosphatase Total Creatine Kinase 1493 H* Troponin I High Sens 42.4 H* Total Protein Albumin Globulin Albumin/Globulin Ratio Lipase Urine Color Urine Clarity Urine pH Ur Specific [place] Urine Protein Urine Glucose (UA) Urine Ketones Urine Occult Blood Urine Nitrite Urine Bilirubin Urine Urobilinogen Ur Leukocyte Esterase Urine RBC Urine WBC Ur Squamous Epith Cells Urine Bacteria Ur Microscopic Review Urine Culture Comments Urine Opiates Screen NEGATIVE Ur Buprenorphine Scrn NEGATIVE Ur Oxycodone Screen NEGATIVE Urine Methadone Screen NEGATIVE Ur Barbiturates Screen NEGATIVE Ur Tricyclics Screen NEGATIVE Ur Phencyclidine Scrn NEGATIVE Ur Amphetamine Screen NEGATIVE U Methamphetamines Scrn NEGATIVE U Benzodiazepines Scrn NEGATIVE Urine Cocaine Screen NEGATIVE U Cannabinoids Screen POSITIVE H Ur Drug Screen Comment CUTOFF CONC BELOW: Ethyl Alcohol - Rads (name of study) No standard instances Relevant Findings:: Final report received PD Medical Decision Making - ED course Complexity details: reviewed results, re-evaluated patient, considered differential, d/w patient, d/w family ED course: This is a 73-year-old male who was found On the floor at his house. He was last seen yesterday and was found today by a friend that stopped by to take him grocery shopping. The patient was awake and alert on arrival here, very pleasant, conversant, and in no acute distress. He has no complaints but is a poor historian. After discussion with his sister it does sound as though there were some concerns about possible development of dementia recently, and daughter over the phone states that the patient has a fairly precipitous decline in mentation over the course of the last month or so. It is unclear how the patient ended up on the ground whether he fell, had a stroke, cardiac event, dizzy episode or syncope or other cause of his fall. In any case, the patient was likely down on the ground for quite some time. Therefore obtained a broad workup here including head CT, cervical spine CT, CT chest abdomen pelvis, and a broad labs. Labs notable for a CK of 1700, mild elevation in troponin at 38, he has no acute EKG changes and no chest pain. His CTs show no acute intracranial findings, no acute cervical spine injuries, he does have a 2.6 cm left lower lobe opacity that will need outpatient follow-up, but no bony injuries or other acute findings on CT. Patient was given liter normal saline and repeat CK is down to 1400, troponin is 42. Again patient has no chest pain. On further exam, the patient was unsteady on his feet and I was concerned about his ability to be safe at home and after discussion with patient and his sister he did wish to pursue possible placement however daughter then called and spoke with the nurse and she does not want him to have placement and would like him to be discharged tonight, she does not want him to stay in the hospital. She states that she plans to take care of him at home and will be with him. Here the patient has no other complaints, no chest pain, no acute EKG changes, is tolerating p.o. well, and his CK is downtrending, and he has stable renal function, he is okay to discharge home but will need close monitoring at home due to recurrent falls and close outpatient follow-up. Sounds as though he has had a precipitous decline recently which may be due to dementia but further outpatient evaluation should be undertaken including potentially an MRI to evaluate further. I did again offer to keep the patient in the hospital tonight however. Patient's daughter declined and has requested that we discharge him home. He was therefore discharged with his sister who will take him home and daughter will be staying with him to go other plans made. Advised that they can return to the hospital at any point time if they feel that he is unsafe at home or they cannot continue to care for him. Or if they have new concerns. Departure - Departure Disposition: 01 Home, Self Care Clinical Impression: Confusion, Fall from ground level Rhabdomyolysis Qualifiers: Rhabdomyolysis type: traumatic Encounter type: initial encounter Qualified Code(s): T79.6XXA - Traumatic ischemia of muscle, initial encounter Condition: Fair Instructions: ED Confusion, ED Rhabdomyolysis Comments: Vincent presented after being found on the ground at home. He has a large bruise to the left shoulder but no broken bones. He was likely on the ground for quite awhile which caused mild rhabdomyolysis, which is breakdown of muscle tissue. His other labs are stable aside from a mild elevation in his troponin, likely again from laying on the ground. We did a CT of his cervical spine and his brain which were stable, I also CT of his chest abdomen pelvis. He has a small left lower lung opacity which should be followed up in about 6 months by his primary doctor. This is not a pneumonia. His head CT did not show any kind of bleeding or signs of acute stroke. He received IV fluids here and has been very pleasant without any complaints, but was quite weak and wobbly when walking to the bathroom and we did suggest that he be evaluated for possible long term placement. At this time, you would like to take him home which is reasonable but he will need frequent monitoring to ensure that he does not have recurrent falls. He should also drink plenty of water the next few days to flush out the rhabdomyolysis. If his urine is dark or if he is not urinating, he should return to the ER. You would likely qualify for home health, and this can be arranged via his PCP. If family cannot care for him at home, or if there are new concern s, then please do not hesitate to return. Forms: PCP List
[2023-11-09 15:11] LABS: ALBUMIN 4.6 g/dL (3.2-5.5); ALBUMIN/GLOBULIN RATIO 1.8 (1.0-2.2); ALKALINE PHOSPHATASE 62 IU/L (42-121); ALT ALANINE AMINOTRANSFERASE 14 IU/L (10-60); AST ASPARTATE AMINOTRANSFERASE 36 IU/L (10-42); BILIRUBIN,TOTAL 1.1 mg/dL (0.2-1.0); BUN - BLOOD UREA NITROGEN 13 mg/dL (6-20); CALCIUM 9.7 mg/dL (8.5-10.3); CARBON DIOXIDE - CO2 21 mmol/L (21-32); CHLORIDE 102 mmol/L (101-111); CREATININE 0.9 mg/dL (0.6-1.3); GFR - MDRD 82 (>89); GLUCOSE 110 mg/dL (74-104); POTASSIUM 3.5 mmol/L (3.5-4.5); SODIUM 134 mmol/L (135-145); TOTAL PROTEIN 7.2 g/dL (6.4-8.9)
[2023-11-09 15:12] LABS: LIPASE < 10 U/L (11-82)
[2023-11-09 15:53] LABS: BILIRUBIN,URINE NEGATIVE (NEGATIVE); GLUCOSE, URINE (UA) NEGATIVE (NEGATIVE); KETONES,URINE (UA) TRACE mg/dL (NEGATIVE); LEUKOCYTE ESTERASE, URINE NEGATIVE (NEGATIVE); NITRITE,URINE NEGATIVE (NEGATIVE); OCCULT BLOOD,URINE LARGE (NEGATIVE); PH,URINE 5.5 PH (5.0-7.5); PROTEIN,URINE TRACE mg/dL (NEGATIVE); UROBILINOGEN,URINE 0.2 (NORMAL) E.U./dL (NORMAL)
[2023-11-09 15:55] LABS: CLARITY,URINE HAZY (CLEAR)
[2023-11-09 16:02] LABS: BACTERIA,URINE None Seen /HPF (None Seen); SQUAMOUS EPITHELIAL CELL,UR NONE SEEN (<= Few)
[2023-11-09] MEDS: SODIUM CHLORIDE 0.9% 1,000 ML IV STA (17:09)
--- NOTE | 2023-11-09 17:26 | CT Report ---
PROCEDURE: Head WO INDICATIONS: fall, confusion TECHNIQUE: Noncontrast 4.5 mm thick angled axial sections acquired from the foramen magnum to the vertex. For r adiation dose reduction, the following was used: automated exposure control, adjustment of mA and/or kV according to patient size. COMPARISON: 06/24/2021. FINDINGS: Image quality: Diagnostic. Moderate patient motion artifact CSF spaces: Basal cisterns are patent. No extra-axial fluid collections. Ventricles are normal in size and shape. Brain: No midline shift. No intracranial masses or hemorrhage. No mass effect. Diaz-white matter i nterface is normal. There cerebral volume loss for age with resultant ventricular and sulcal prominen ce. There are periventricular and deep white matter chronic small vessel ischemic changes. Atheroscle rotic calcifications are noted in the intracranial segments of the bilateral internal carotid arterie s. Skull and face: Calvarium and visualized facial bones are intact, without suspicious lesions. Sinuses: Visualized sinuses and mastoids are clear. IMPRESSION: No acute intracranial pathology. No acute calvarial fracture. Age-related senescent changes and sequela chronic small vessel ischemic disease. Reviewed by: Ty Roy MD on 11/09/2023 5:25 PM PDT Approved by: Ty Roy MD on 11/09/2023 5:25 PM PDT Station ID: [id number]
--- NOTE | 2023-11-09 17:29 | CT Report ---
PROCEDURE: Cervical Spine WO INDICATIONS: fall, confusion TECHNIQUE: Noncontrast 3 mm thick sections acquired from the skull base to the T4 level. Sagittal and coronal r eformats were then constructed. For radiation dose reduction, the following was used: automated exp osure control, adjustment of mA and/or kV according to patient size. COMPARISON: CT angiography of the neck FINDINGS: Image quality: Diagnostic. Bones: No acute fractures or dislocations. No acute compression fractures of the vertebral bodies. Craniocervical junction is intact. C1-C2 relationship is preserved. Visualized superior ribs are inta ct. Severe multilevel cervical spondylosis most pronounced at C5-6. Alignment is stable compared to prior study. Soft tissues: Prevertebral soft tissues are normal in thickness. No paravertebral hematomas. No ap ical pneumothoraces. IMPRESSION: No acute, displaced fracture or traumatic subluxation. Advanced multilevel cervical spondylosis most pronounced at C5-6. Reviewed by: Ty Roy MD on 11/09/2023 5:28 PM PDT Approved by: Ty Roy MD on 11/09/2023 5:28 PM PDT Station ID: [id number]
--- NOTE | 2023-11-09 17:35 | CT Report ---
PROCEDURE: Chest WO INDICATIONS: fall, confusion TECHNIQUE: A CT scan of the chest was performed. Intravenous contrast media was not administered. Images were re corded and evaluated at appropriate window settings. Reformats: axial MIP of the chest, coronal and s agittal. For radiation dose reduction, the following was used: automated exposure control, adjustment of mA and/or kV according to patient size. COMPARISON: Chest radiograph dated 06/16/2021 FINDINGS: Image quality: Diagnostic. Chest wall and lower neck: No thyroid nodule which requires sonographic follow up. No axillary or sup raclavicular adenopathy by size. Lungs and pleura: No consolidation. Minimal upper lobe predominant pulmonary emphysematous changes. 2 .6 x 2.1 cm groundglass opacity in the anterior aspect of the left lower lobe (64/series 15). No pleu ral effusions. No pneumothorax. No suspicious pulmonary nodules which require follow up. Mediastinum: Heart size is normal. No pericardial effusion. Atherosclerotic calcifications of the cor onary arteries. No large vessel abnormality. No mediastinal adenopathy by size criteria. Bones: No aggressive osseous abnormality. No acute compression fractures. No acute displaced rib frac tures seen. Multilevel thoracic spondylosis. Upper Abdomen: Please see separate report for the abdomen and pelvis findings. IMPRESSION: CT chest without acute cardiopulmonary abnormalities. No evidence for acute traumatic injuries. A 2.6 cm groundglass opacity involving the anterior aspect of the left lower lobe. Recommend follow-u p chest CT in 6-12 months to document stability versus resolution. Atherosclerosis. Reviewed by: Ty Roy MD on 11/09/2023 5:34 PM PDT Approved by: Ty Roy MD on 11/09/2023 5:34 PM PDT Station ID: [id number]
--- NOTE | 2023-11-09 17:42 | CT Report ---
PROCEDURE: Abdomen/Pelvis WO INDICATIONS: fall, confusion TECHNIQUE: A CT scan of the abdomen and pelvis was performed without the use of intravenous contrast. Images we re recorded and evaluated at appropriate window settings. Reformats: coronal and sagittal. For radiat ion dose reduction, the following was used: automated exposure control, adjustment of mA and/or kV ac cording to patient size. COMPARISON: None. FINDINGS: Image quality: Diagnostic. Lower chest: Unremarkable. Liver: No contour-deforming mass. Gallbladder: No radiopaque stones or wall thickening. Biliary tree: No intrahepatic or extrahepatic dilation, accounting for age. Spleen: No splenomegaly. Pancreas: No pancreatic ductal dilation. Adrenals: No adrenal nodule. Kidneys and ureters: No hydronephrosis. No contour-deforming mass. Stomach, bowel and peritoneum: No gastric or small bowel dilation. No abnormal wall thickening. Sheila l appendix. No pathologic free fluid. Lymph nodes: No central or retroperitoneal adenopathy. Vessels: Infrarenal abdominal aortic aneurysm measuring approximately 3.7 cm in maximum dimension. At herosclerosis of the abdominal aorta. Reproductive organs: Unremarkable. Bladder: There is circumferential urinary bladder wall thickening greater than expected for degree of distention. No perivesicular inflammation. Suggestion of possible asymmetric thickening of the left urinary bladder wall. Pelvic lymph nodes: No adenopathy by size criteria. Bones: No aggressive osseous abnormality. Moderate multilevel spondylosis of the imaged spine. No acu te compression fractures. Straightening of normal lumbar lordosis. Status post right total hip arthro plasty resulting in significant beam hardening artifact which limits visualization of the adjacent st ructures. Other: No significant ventral or inguinal hernia. IMPRESSION: CT abdomen and pelvis without acute traumatic injuries. Circumferential urinary bladder wall thickening greater than expected for degree of distention. Findi ngs may be related to cystitis. Recommend clinical/laboratory correlation. Additionally, suggestion o f possible asymmetric wall thickening of the left urinary bladder wall. Further evaluation with outpa tient CT IVP versus direct visualization can be considered. Infrarenal abdominal aortic aneurysm measuring up to 3.7 cm in size. Recommend continued clinical and imaging surveillance. Other chronic findings as above Reviewed by: Ty Roy MD on 11/09/2023 5:40 PM PDT Approved by: Ty Roy MD on 11/09/2023 5:40 PM PDT Station ID: [id number]
[2023-11-09 18:04] LABS: AMPHETAMINE SCREEN,URINE NEGATIVE (NEGATIVE); BARBITURATE SCREEN,UR NEGATIVE (NEGATIVE); BENZODIAZEPINES SCREEN, URINE NEGATIVE (NEGATIVE); BUPRENORPHINE SCREEN, URINE NEGATIVE (NEGATIVE); COCAINE SCREEN URINE NEGATIVE (NEGATIVE); METHADONE SCREEN, URINE NEGATIVE (NEGATIVE); METHAMPHETAMINES SCREEN, URINE NEGATIVE (NEGATIVE); OPIATE SCREEN, URINE NEGATIVE (NEGATIVE); OXYCODONE SCREEN, URINE NEGATIVE (NEGATIVE); THC CANNABINOID SCREEN, URINE POSITIVE (NEGATIVE); TRICYCLIC ANTIDEPRESSANT,URINE NEGATIVE (NEGATIVE)
[2023-11-09 19:20] LABS: TROPONIN I HIGH SENSITIVITY 42.4 ng/L (2.3-19.7)
[2023-11-09 21:08] VITALS: BP 150/88; O2SAT 98
== END 2023-11-09 20:55 | disposition home or self-care (01) ==
LOC: EDUNIT# → ED 14:31
DX: T79.6XXA Traumatic ischemia of muscle, initial encounter (principal); R41.0 Disorientation, unspecified; W18.39XA Other fall on same level, initial encounter; I10 Essential (primary) hypertension; E78.00 Pure hypercholesterolemia, unspecified; I25.10 Atherosclerotic heart disease of native coronary artery without angina pectoris; Z79.82 Long term (current) use of aspirin; Z79.899 Other long term (current) drug therapy
CPT/HCPCS: 36415; 51701; 80053; 80306; 81001; 81003; 82077; 82550; 83690; 84484; 85025; 87086; 93005; 99284